=== PATIENT | male | born 1990 | race Caucasian/White ===

== ENCOUNTER 2024-01-27 00:10 | Emergency (ER) | payer BC ==
[~2024-01-27] VITALS: Ht 170.2 cm; Wt 74.8 kg
[2024-01-27 00:17] VITALS: BP 147/65; PULSE 134; RESP 18; TEMP 97.4; O2SAT 98
[2024-01-27 02:55] VITALS: BP 147/65; PULSE 134; RESP 18; TEMP 97.4; O2SAT 98
== END 2024-01-27 02:51 | disposition left against medical advice (07) ==
LOC: MED 00:10
DX: M79.652 Pain in left thigh (principal); Z53.21 Procedure and treatment not carried out due to patient leaving prior to being seen by health care provider
CPT/HCPCS: 99281